=== PATIENT | male | born 1985 | race Two or more races ===

== ENCOUNTER 2022-12-01 11:52 | Emergency (ER) | payer SELFPAY ==
[~2022-12-01] VITALS: Ht 167.6 cm; Wt 85.5 kg
[2022-12-01 12:24] VITALS: BP 124/87
[2022-12-01] MEDS ORDERED: AUG875T PO (14:31)
== END 2022-12-01 20:35 | disposition left against medical advice (07) ==
LOC: ER 11:52 → EDBD 11:52 → ER 20:35
DX: H66.92 Otitis media, unspecified, left ear (principal); R51.9 Headache, unspecified

== ENCOUNTER 2023-04-03 09:43 | Emergency (ER) | payer SELFPAY ==
[~2023-04-03] VITALS: Ht 175.3 cm; Wt 77.7 kg
[~2023-04-03 09:43] MED LIST: AUG875T PO
[2023-04-03 10:36] VITALS: BP 145/89
[2023-04-03] MEDS ORDERED: DexAMETHasone SOD PHOS 10MG/1ML VIAL INJ IM ONE (11:00)
[2023-04-03] MEDS ORDERED: cefTRIAXone SOD 1,000 MG VL IM ONE (11:00)
[2023-04-03] MEDS ORDERED: IBUP1TAB5 PO (11:28)
[2023-04-03] MEDS ORDERED: DOXY-286 PO (11:28)
== END 2023-04-03 11:33 | disposition home or self-care (01) ==
LOC: ER 09:43
DX: J34.0 Abscess, furuncle and carbuncle of nose (principal); F17.210 Nicotine dependence, cigarettes, uncomplicated; F12.90 Cannabis use, unspecified, uncomplicated; Z98.890 Other specified postprocedural states
CPT/HCPCS: 96372; 99284; J0696; J1100